=== PATIENT | female | born 1965 | race Two or more races ===

== ENCOUNTER 2016-04-06 07:48 | Emergency (ER) | payer BC, OTHER ==
[~2016-04-06] VITALS: Ht 160 cm; Wt 69.9 kg
[2016-04-06 07:52] VITALS: BP 129/60
== END 2016-04-06 08:59 | disposition home or self-care (01) ==
LOC: ER 07:48
DX: J20.9 Acute bronchitis, unspecified (principal)
CPT/HCPCS: 71020; 93005